=== PATIENT | female | born 1980 | race American Indian/Alaskan Native ===

== ENCOUNTER 2018-02-20 15:56 | Inpatient (IN) | payer BC ==
[2018-02-20 18:47] LABS: Basophils # (Auto) 0.1 K/mm3 (0.0-0.1); Basophils % (Auto) 0.4 % (0.0-1.8); Eosinophils # (Auto) 0.1 K/mm3 (0.0-0.4); Eosinophils % (Auto) 0.7 % (0.0-4.3); Hematocrit 38.9 % (30.3-42.9); Hemoglobin 12.9 gm/dl (10.1-14.3); Lymphocytes # (Auto) 3.8 K/mm3 (1.2-5.4); Lymphocytes % (Auto) 22.8 % (13.4-35.0); Mean Corpuscular HGB Conc 33 % (30-34); Mean Corpuscular Hemoglobin 32 pg (28-32); Mean Corpuscular Volume 96 fl (79-97); Monocytes # (Auto) 1.1 K/mm3 (0.0-0.8); Monocytes % (Auto) 6.8 % (0.0-7.3); Platelet Count 256 K/mm3 (140-440); Red Blood Count 4.05 M/mm3 (3.65-5.03); Red Cell Distribution Width 13.1 % (13.2-15.2)
[2018-02-20 18:58] LABS: INR 0.85 (0.87-1.13)
[2018-02-20 18:59] LABS: Partial Thromboplastin Time 26.7 Sec. (24.2-36.6)
[2018-02-20 19:04] LABS: Alanine Aminotransferase 33 units/L (7-56); Albumin 3.8 g/dL (3.9-5); BUN/Creatinine Ratio 24; Blood Urea Nitrogen 12 mg/dL (7-17); Calcium 9.2 mg/dL (8.4-10.2); Hemolysis Index 7
--- NOTE | 2018-02-20 20:47 | XRay Report ---
FINAL REPORT PROCEDURE: XR CHEST ROUTINE 2V TECHNIQUE: PA and lateral chest radiographs were obtained. CPT 91876 HISTORY: PLEURAL EFFUSION, SOB COMPARISON: No prior studies are available for comparison. FINDINGS: Heart: Normal. Mediastinum/Vessels: Normal. Lungs/Pleural space: No infiltrate, effusion, or pneumothorax. Bony thorax: No acute osseous abnormality. Other: IMPRESSION: No pulmonary infiltrates are identified.
[2018-02-20] MEDS: LEVAQUIN 750MG/150ML 750 MG/150 ML BAG IV SCH (21:32)
[2018-02-20] MEDS: LOVENOX SUB-Q SCH (21:33)
[2018-02-20] MEDS: HYDROMET PO SCH (21:34)
[2018-02-20] MEDS: MORPHINE IV PRN (21:34)
[2018-02-20] MEDS: PEPCID IV SCH (21:39)
--- NOTE | 2018-02-20 21:48 | History and Physical Report ---
History of Present Illness Date of examination: 02/20/18 Date of admission: 02/20/18 17:43 Chief complaint: Cough, Shortness of breath, subjective fever History of present illness: Patient is a 37-year-old lady who has a history of breast cancer status post right mastectomy in 2016 with chemotherapy s/p right breast implant and subsequent breast augmentation. Was out of the plastic surgeon's office yesterday for further plastic breast surgery. Patient was having severe shortness of breath with cough at the time. Chest x-ray done during the preop visit yesterday because of the cough showed fluid in her lungs per the patient. Surgery was therefore cancelled and patient was advised to follow up with primary Physician. Patient therefore presented to my office today still having still having shortness of breath and nonproductive cough. Endorses subjective fever. Denies any chest pain, orthopnea, paroxysmal dyspnea, nausea or vomiting. Patient was directly admitted to the hospital where WBC shows a leukocytosis of 16.8, hypokalemia of 3.4 and hyperglycemia 169. Chest x-ray showed perihilar infiltrates per my evaluation. The costophrenic angles with clear. Past History Past Medical History: hypertension Past Surgical History: mastectomy Social history: smoking, alcohol abuse Family history: hypertension, other (anxiety disorder) Medications and Allergies Allergies Allergy/AdvReac Type Severity Reaction Status Date / Time tramadol Allergy Itching Verified 03/31/15 19:41 Home Medications Medication Instructions Recorded Confirmed Last Taken Type HYDROcodone/APAP 5-325 [Aragon 2 each PO Q4H PRN #60 tablet 04/06/15 Unknown Rx 5-325 mg TAB] Labetalol [Normodyne TAB] 100 mg PO BID #60 tablet 04/06/15 Unknown Rx Lisinopril [Zestril TAB] 40 mg PO BID #30 tablet 04/06/15 Unknown Rx tiZANidine [Zanaflex] 4 mg PO Q8H PRN #90 tablet 04/06/15 Unknown Rx Hydrochlorothiazide 12.5 mg PO DAILY 02/20/18 02/20/18 02/20/18 History Letrozole (Nf) [Femara (Nf)] 2.5 mg PO DAILY 02/20/18 02/20/18 02/20/18 History Active Meds: Active Medications Enoxaparin Sodium (Lovenox) 40 mg SUB-Q QDAY@2200 SILVESTRE Last Admin: 02/20/18 21:33 Dose: 40 mg Famotidine (Pepcid) 20 mg IV Q12H [facility] Last Admin: 02/20/18 21:39 Dose: 20 mg Hydrocodone Bit/Homatropine Methylb (Hydromet) 5 ml PO BID [facility] Last Admin: 02/20/18 21:34 Dose: 5 ml Levofloxacin/Dextrose (Levaquin 750mg/150ml) 750 mg in 150 mls @ 100 mls/hr IV Q24HR [facility]; Protocol Last Admin: 02/20/18 21:32 Dose: 100 mls/hr Morphine Sulfate (Morphine) 2 mg IV Q4H PRN PRN Reason: Pain, Moderate (4-6) Last Admin: 02/20/18 21:34 Dose: 2 mg Review of systems Constitutional: Well Nouridhed and Well developed. Head: NC/ AT Eyes: Denies any visual impairments. No discharge from the eyes Nose: Denies any rhinorrhea or epistaxis Throats: Denies any post nasal drainage. Ears: Denies any hearing deficits Cardiovascular system: Denies any chest pain, has shortness of breath, No orthopnea, paroxysmal nocturnal dyspnea, or palpitation. Respiratory system: Has cough with shortness of breath, difficulty breathing, wheezing, pleuritic chest pain, Gastrointestinal system: Denies any abdominal pain, nausea vomiting, hematemesis or melena. Neurological system: Denies any headache, slurred speech, facial droop, lateralizing weakness Genitalia system: Denies any dysuria, urinary frequency or urgency, urethral discharge Skin: No rashes, hyperpigmented spots. Hematological: Denies any cervical tenderness hemorrhages or petechia. Immunological: Denies any multiple septic spots, Lymphatic: Denies any generalized lymphadenopathy. Endocrine: Denies any polyuria, polydipsia, polyphagia. No heat or cold intolerance. Musculoskeletal system: No joint pain or swelling. Psych: No visual, tactile, auditory or hallucination Exam - Physical Exam Narrative exam: Constitutional: Well-nourished well-developed. In no distress Head: Normocephalic atraumatic Eyes: Pupils are equal round and reactive to light Nose: No enlarged turbinates, no septal deviation. Mouth: Moist mucous membranes. Neck: Supple no thyromegaly. No bruit. No JVD Heart: Regular rate and rhythm, S1-S2 abnormal. No rubs murmurs or gallop Lungs: Decreased breath sounds bilaterally. no rales. Has rhonchi Abdomen: Soft, nontender. Bowel sound are present. Extremities: No edema no cyanosis and no clubbing. Neuro: Alert oriented Oriented x3. No focal sensory or motor deficit. Skin: No rashes no hyperemic spots Psychiatry: Euthymic. Calm. - Constitutional Vitals: Temp Pulse Resp BP Pulse Ox 98.5 F 65 20 147/86 100 02/20/18 18:26 02/20/18 18:26 02/20/18 21:34 02/20/18 18:26 02/20/18 18:26 Results - Labs CBC & Chem 7: 02/20/18 18:20 02/20/18 18:20 Labs: Abnormal lab results 02/20/18 02/20/18 02/20/18 Range/Units 18:20 18:20 18:20 WBC 16.8 H (4.5-11.0) K/mm3 RDW 13.1 L (13.2-15.2) % Owen # 1.1 H (0.0-0.8) K/mm3 Seg Neutrophils # 11.6 H (1.8-7.7) K/mm3 PT 12.0 L (12.2-14.9) Sec. INR 0.85 L (0.87-1.13) Potassium 3.4 L (3.6-5.0) mmol/L Creatinine 0.5 L (0.7-1.2) mg/dL Glucose 169 H (65-100) mg/dL Phosphorus (2.5-4.5) mg/dL Alkaline Phosphatase 174 H (35-129) units/L Albumin 3.8 L (3.9-5) g/dL 02/20/18 Range/Units 18:20 WBC (4.5-11.0) K/mm3 RDW (13.2-15.2) % Owen # (0.0-0.8) K/mm3 Seg Neutrophils # (1.8-7.7) K/mm3 PT (12.2-14.9) Sec. INR (0.87-1.13) Potassium (3.6-5.0) mmol/L Creatinine (0.7-1.2) mg/dL Glucose (65-100) mg/dL Phosphorus 2.40 L (2.5-4.5) mg/dL Alkaline Phosphatase (35-129) units/L Albumin (3.9-5) g/dL Assessment and Plan Assessment and plan -Bacterial pneumonia Admit to [facility] Obtain Blood culture, sputum culture Pulse ox. Commence IV Levaquin - Leukocytosis Likely secondary to pneumonia Trend WBC IV antibiotic as above - Acute Bronchitis Commence DuoNeb IV Solu-Medrol -Hypoglycemia Obtain A1c. If greater than 6.5, initiate SSI and Consent provided diet - Hypokalemia Supplement potassium. Recheck levels as well as magnesium - Tobacco use disorder Tobacco cessation counseling done - DVT prophylaxis with Lovenox and GI with Pepcid - Spent 38 mins during this admission process in direct pt care, review of laboratory and radiological data.
[2018-02-21] MEDS: PROVENTIL IH SCH ×4 (01:04→23:47)
[2018-02-21] MEDS: MORPHINE IV PRN ×3 (03:00→21:35)
[2018-02-21] MEDS: PEPCID IV SCH (05:09)
[2018-02-21 05:50] LABS: Basophils # (Auto) 0.1 K/mm3 (0.0-0.1); Basophils % (Auto) 0.5 % (0.0-1.8); Eosinophils # (Auto) 0.1 K/mm3 (0.0-0.4); Eosinophils % (Auto) 1.1 % (0.0-4.3); Hematocrit 35.5 % (30.3-42.9); Hemoglobin 11.9 gm/dl (10.1-14.3); Lymphocytes % (Auto) 33.7 % (13.4-35.0); Mean Corpuscular HGB Conc 34 % (30-34); Mean Corpuscular Hemoglobin 33 pg (28-32); Mean Corpuscular Volume 98 fl (79-97); Monocytes # (Auto) 0.9 K/mm3 (0.0-0.8); Monocytes % (Auto) 7.4 % (0.0-7.3); Platelet Count 190 K/mm3 (140-440); Red Blood Count 3.64 M/mm3 (3.65-5.03); Red Cell Distribution Width 13.3 % (13.2-15.2)
[2018-02-21 06:18] LABS: Alanine Aminotransferase 37 units/L (7-56); Albumin 3.4 g/dL (3.9-5); BUN/Creatinine Ratio 20; Blood Urea Nitrogen 12 mg/dL (7-17); Calcium 8.6 mg/dL (8.4-10.2); Hemolysis Index 18
[2018-02-21] MEDS: HYDROMET PO SCH ×2 (08:40→21:36)
[2018-02-21] MEDS: LEVAQUIN 750MG/150ML 750 MG/150 ML BAG IV SCH (08:40)
--- NOTE | 2018-02-21 10:27 | Progress Note ---
Assessment and Plan Pneumonia: -Slight perihilar infiltrate. -On IV Levaquin and bronchodilators. -Follow-up on sputum and blood culture. Leukocytosis-likely secondary to pneumonia: -Improving, continue IV antibiotics as above. Acute bronchitis: -On duo nebs, IV Solu Medrol and Hydromet. Hyperglycemia-likely secondary to steroids: -Will obtain A1c, if greater than 6.5 will initiate sliding scale insulin. Hypokalemia-Corrected Tobacco use disorder: -Counseled patient on smoking cessation. HTN: -Optimize control with Bp meds. History of breast cancer: Continue with home meds, Letrozole 2.5 mg qd DVT prophylaxis with Lovenox and GI prophylaxis with famotidine Subjective Date of service: 02/21/18 Principal diagnosis: SOB, pleural effusion Objective - Constitutional Vitals: Vital Signs - 12hr 02/21/18 02/21/18 03:00 07:46 Temperature 98.4 F Pulse Rate 48 L Respiratory 20 18 Rate Blood Pressure 136/75 O2 Sat by Pulse 96 Oximetry General appearance: Present: no acute distress, well-nourished - EENT Eyes: PERRL, EOM intact ENT: hearing intact, clear oral mucosa Ears: bilateral: normal - Neck Neck: supple, normal ROM - Respiratory Respiratory effort: normal Respiratory: bilateral: CTA - Breasts Breasts: deferred - Cardiovascular Rhythm: regular Heart Sounds: Present: S1 & S2. Absent: gallop, rub Extremities: pulses intact, No edema, normal color, Full ROM - Gastrointestinal General gastrointestinal: Present: soft, non-tender, non-distended, normal bowel sounds - Genitourinary Female genitourinary: deferred - Integumentary Integumentary: clear, warm, dry - Musculoskeletal Musculoskeletal: strength equal bilaterally - Neurologic Neurologic: moves all extremities - Psychiatric Psychiatric: appropriate mood/affect - Labs CBC & Chem 7: 02/21/18 04:19 02/21/18 04:19 Labs: Abnormal lab results 02/20/18 02/20/18 02/20/18 Range/Units 18:20 18:20 18:20 WBC 16.8 H (4.5-11.0) K/mm3 RBC (3.65-5.03) M/mm3 MCV (79-97) fl MCH (28-32) pg RDW 13.1 L (13.2-15.2) % Barber % (Auto) (0.0-7.3) % Barber # 1.1 H (0.0-0.8) K/mm3 Seg Neutrophils # 11.6 H (1.8-7.7) K/mm3 PT 12.0 L (12.2-14.9) Sec. INR 0.85 L (0.87-1.13) Potassium 3.4 L (3.6-5.0) mmol/L Creatinine 0.5 L (0.7-1.2) mg/dL Glucose 169 H (65-100) mg/dL Phosphorus (2.5-4.5) mg/dL Alkaline Phosphatase 174 H (35-129) units/L Total Protein (6.3-8.2) g/dL Albumin 3.8 L (3.9-5) g/dL 02/20/18 02/21/18 02/21/18 Range/Units 18:20 04:19 04:19 WBC 12.0 H (4.5-11.0) K/mm3 RBC 3.64 L (3.65-5.03) M/mm3 MCV 98 H (79-97) fl MCH 33 H (28-32) pg RDW (13.2-15.2) % Barber % (Auto) 7.4 H (0.0-7.3) % Barber # 0.9 H (0.0-0.8) K/mm3 Seg Neutrophils # (1.8-7.7) K/mm3 PT (12.2-14.9) Sec. INR (0.87-1.13) Potassium (3.6-5.0) mmol/L Creatinine 0.6 L (0.7-1.2) mg/dL Glucose 171 H (65-100) mg/dL Phosphorus 2.40 L (2.5-4.5) mg/dL Alkaline Phosphatase 147 H (35-129) units/L Total Protein 6.2 L (6.3-8.2) g/dL Albumin 3.4 L (3.9-5) g/dL
[2018-02-21] MEDS ORDERED: CHLORASEPTIC MM PRN (12:10)
[2018-02-21] MEDS: HCTZ PO SCH (12:51)
[2018-02-21] MEDS ORDERED: LETROZOLE 2.5 MG PO SCH (13:00)
[2018-02-21] MEDS ORDERED: NON-FORMULARY (Hydrochlorothiazide 12.5 MG) PO SCH (13:00)
[2018-02-21] MEDS: ZESTRIL PO SCH ×2 (15:07→21:30)
[2018-02-21] MEDS: PEPCID PO SCH (21:37)
[2018-02-21] MEDS: LOVENOX SUB-Q SCH (21:39)
[2018-02-22] MEDS: PROVENTIL IH SCH (07:47)
[2018-02-22 08:09] LABS: Basophils % (Auto) 0.2 % (0.0-1.8); Hematocrit 36.1 % (30.3-42.9); Hemoglobin 11.9 gm/dl (10.1-14.3); Lymphocytes # (Auto) 1.6 K/mm3 (1.2-5.4); Lymphocytes % (Auto) 8.9 % (13.4-35.0); Mean Corpuscular HGB Conc 33 % (30-34); Mean Corpuscular Hemoglobin 32 pg (28-32); Mean Corpuscular Volume 97 fl (79-97); Monocytes # (Auto) 0.9 K/mm3 (0.0-0.8); Monocytes % (Auto) 4.8 % (0.0-7.3); Platelet Count 234 K/mm3 (140-440); Red Blood Count 3.73 M/mm3 (3.65-5.03); Red Cell Distribution Width 13.3 % (13.2-15.2)
[2018-02-22 08:20] LABS: Alanine Aminotransferase 88 units/L (7-56); Albumin 4.1 g/dL (3.9-5); BUN/Creatinine Ratio 28; Blood Urea Nitrogen 11 mg/dL (7-17); Calcium 9.6 mg/dL (8.4-10.2); Hemolysis Index 1
[2018-02-22 08:29] VITALS: BP 148/63
[2018-02-22] MEDS: HYDROMET PO SCH ×2 (09:08→09:15)
[2018-02-22] MEDS: ZESTRIL PO SCH (09:10)
[2018-02-22] MEDS: MORPHINE IV PRN (09:12)
[2018-02-22] MEDS ORDERED: LEVAQUIN PO SCH (10:00)
[2018-02-22] MEDS ORDERED: HCTZ PO SCH (10:00)
[2018-02-22] MEDS: HCTZ PO SCH (10:05)
[2018-02-22] MEDS: PEPCID PO SCH (10:05)
[2018-02-22] MEDS ORDERED: PROVENTIL IH SCH (14:00)
--- NOTE | 2018-02-22 15:35 | Discharge Summary ---
Providers - Providers Date of Admission: 02/20/18 17:43 Date of discharge: 02/22/18 Attending physician: TERE MCHUGH none Primary care physician: TERE MCHUGH Hospitalization Reason for admission: cough, shortness of breath Pertinent studies: CXR ltha showed perihilar infiltrate Procedures: none Hospital course: Patient is a 37-year-old lady who has a history of breast cancer status post right mastectomy in 2016 with chemotherapy s/p right breast implant and subsequent breast augmentation, was at the plastic surgeon's office 02/19/18 for creation of a nipple on the right breast surgery. Patient noticed to be having severe shortness of breath with cough at the time. Chest x-ray done during this preop visit on 02/19/18 because of the cough showed fluid in her lungs per the patient. Surgery was therefore cancelled and patient was advised to follow up with primary Physician. Patient therefore presented to my office today still having shortness of breath and severe nonproductive cough. Endorses subjective fever. Denies any chest pain, orthopnea, paroxysmal dyspnea, nausea or vomiting. Patient was directly admitted to the hospital where WBC shows a leukocytosis of 16.8, hypokalemia of 3.4 and hyperglycemia 169. Chest x-ray showed no evidence of pneumonia per radiologist. The costophrenic angles was clear. On admission blood and sputum cultures were ordered. Pt was commenced on iv levaquin, bronchodilators, iv solumedrol and antitussive. Leukocytosis improved however it increase the next day from iv solumderol. Pt symptoms improved appreciably and she is therefore being discharged to follow up with PCP in 3-4 days. Disposition: - TO HOME OR SELFCARE Time spent for discharge: 35 mins - Discharge Diagnoses (1) Acute bronchitis Status: Acute (2) Shortness of breath Status: Acute Exam - Physical Exam Narrative exam: Constitutional: Well-nourished well-developed. In no distress Head: Normocephalic atraumatic Eyes: Pupils are equal round and reactive to light Nose: No enlarged turbinates, no septal deviation. Mouth: Moist mucous membranes. Neck: Supple no thyromegaly. No bruit. No JVD Heart: Regular rate and rhythm, S1-S2 abnormal. No rubs murmurs or gallop Lungs: Decreased breath sounds bilaterally. no rales. Has rhonchi Abdomen: Soft, nontender. Bowel sound are present. Extremities: No edema no cyanosis and no clubbing. Neuro: Alert oriented Oriented x3. No focal sensory or motor deficit. Skin: No rashes no hyperemic spots Psychiatry: Euthymic. Calm. - Constitutional Vitals: Temp Pulse Resp BP Pulse Ox 98.6 F 85 20 148/63 98 02/22/18 08:02 02/22/18 08:02 02/22/18 08:02 02/22/18 08:02 02/22/18 09:40 Plan Activity: advance as tolerated Diet: regular Follow up with: TERE MCHUGH MD [Primary Care Provider] - 7 Days Prescriptions: HYDROcodone/HOMATROP 5-1.5 [HYDROcodone-Homatropin 5-1.5 mg per 5 ML] 5 ml PO BID #200 udc Levofloxacin [Levaquin TAB] 750 mg PO DAILY #5 tablet Phenol [Sore Throat [place]] 177 ml MM TID #60 spray Prednisone 20 mg PO DAILY #7 tablet
== END 2018-02-22 17:30 | disposition home or self-care (01) | DRG 202 ==
LOC: 3A 15:56 → UNDOADMIN 15:56 → 3A 17:43
PROVIDERS: ADMIT Family Medicine; ATTEND Family Medicine
DX: J20.9 Acute bronchitis, unspecified (principal); J15.9 Unspecified bacterial pneumonia; I10 Essential (primary) hypertension; D72.829 Elevated white blood cell count, unspecified; E16.2 Hypoglycemia, unspecified; Z85.3 Personal history of malignant neoplasm of breast; Z90.11 Acquired absence of right breast and nipple; Z88.8 Allergy status to other drugs, medicaments and biological substances; Z92.21 Personal history of antineoplastic chemotherapy
CPT/HCPCS: 36415; 71046; 80053; 83735; 84100; 85025; 85610; 85730; 93005; 93010; 94640; J1650; J1956; J2270; J2920

== ENCOUNTER 2018-04-08 12:16 | Outpatient (CLI) | payer BC ==
[2018-04-08 12:47] LABS: Hematocrit 41.1 % (30.3-42.9); Hemoglobin 14.2 gm/dl (10.1-14.3); Mean Corpuscular HGB Conc 35 % (30-34); Mean Corpuscular Hemoglobin 33 pg (28-32); Mean Corpuscular Volume 96 fl (79-97); Platelet Count 213 K/mm3 (140-440); Red Blood Count 4.31 M/mm3 (3.65-5.03); Red Cell Distribution Width 13.2 % (13.2-15.2)
[2018-04-08 12:58] LABS: Alanine Aminotransferase 56 units/L (7-56); Albumin 4.6 g/dL (3.9-5); BUN/Creatinine Ratio 18; Blood Urea Nitrogen 9 mg/dL (7-17); Calcium 10.2 mg/dL (8.4-10.2); Chol/HDL Ratio 2.05 %; HDL Cholesterol 89 mg/dL (40-59); Hemolysis Index 6; LDL Cholesterol,Direct 102 mg/dL (50-130)
[2018-04-08 13:08] LABS: INR 0.9 (0.87-1.13); Partial Thromboplastin Time 25.6 Sec. (24.2-36.6)
--- NOTE | 2018-04-08 15:59 | Cat Scan Report ---
FINAL REPORT PROCEDURE: CT CHEST WO CON TECHNIQUE: Computerized axial tomography of the chest was performed without contrast material. This study is performed without intravenous contrast and the sensitivity for pathology, including neoplasms, adenopathy, abscess, pulmonary embolism and aortic dissection, is reduced. HISTORY: RIGHT LOWER INFILITARTE COMPARISON: No prior studies are available for comparison. TECHNICAL QUALITY: Satisfactory. FINDINGS: The lungs are clear. No infiltrates masses or effusions are seen. There is some mild motion artifact degrading image quality. Coronary arteries are unremarkable. No evidence of aortic aneurysm. No evidence of pericardial effusion. Nonspecific subcentimeter lymph nodes are seen in the hilar and mediastinal regions. No pathologically enlarged lymph nodes are identified. Images through upper abdomen show no acute or focal abnormalities. No acute bony abnormalities are identified. IMPRESSION: Lungs are clear. No infiltrates masses or effusions are identified. No focal abnormalities are identify.
== END 2018-04-08 12:17 | disposition home or self-care (01) ==
LOC: CT 12:16
PROVIDERS: ATTEND Internal Medicine
DX: R91.8 Other nonspecific abnormal finding of lung field (principal); Z87.891 Personal history of nicotine dependence; Z90.12 Acquired absence of left breast and nipple
CPT/HCPCS: 36415; 71250; 80053; 80061; 84436; 84443; 85027; 85610; 85730

== ENCOUNTER 2019-07-13 12:04 | Inpatient (IN) | payer BC ==
[2019-07-13] MEDS ORDERED: ONDANSETRON 4 MG/2 ML INJ IV PRN (12:10)
[2019-07-13 18:30] LABS: Basophils # (Auto) 0.1 K/mm3 (0.0-0.1); Basophils % (Auto) 0.8 % (0.0-1.8); Eosinophils # (Auto) 0.3 K/mm3 (0.0-0.4); Eosinophils % (Auto) 2.6 % (0.0-4.3); Hematocrit 40.6 % (30.3-42.9); Hemoglobin 13.8 gm/dl (10.1-14.3); Lymphocytes # (Auto) 3.5 K/mm3 (1.2-5.4); Lymphocytes % (Auto) 36.1 % (13.4-35.0); Mean Corpuscular HGB Conc 34 % (30-34); Mean Corpuscular Volume 97 fl (79-97); Monocytes # (Auto) 0.8 K/mm3 (0.0-0.8); Monocytes % (Auto) 7.8 % (0.0-7.3); Platelet Count 211 K/mm3 (140-440); Red Blood Count 4.21 M/mm3 (3.65-5.03); Red Cell Distribution Width 13.4 % (13.2-15.2)
[2019-07-13 18:41] LABS: INR 0.94 (0.87-1.13)
[2019-07-13 18:42] LABS: Partial Thromboplastin Time 26.6 Sec. (24.2-36.6)
[2019-07-13 18:45] LABS: Alanine Aminotransferase 37 units/L (7-56); BUN/Creatinine Ratio 20; Blood Urea Nitrogen 10 mg/dL (7-17); Calcium 9.3 mg/dL (8.4-10.2); Hemolysis Index 21
[2019-07-13] MEDS: D5W/0.45% NACL 1,000 ML IV SCH (18:48)
[2019-07-13] MEDS: MORPHINE 2 MG/1 ML INJ IV PRN ×2 (18:48→23:02)
--- NOTE | 2019-07-13 18:48 | History and Physical Report ---
History of Present Illness Date of examination: 07/13/19 Date of admission: 07/13/19 16:47 Chief complaint: Headache, chest pain and abdominal pain for 3 days History of present illness: Patient is a 37-year-old lady who has a history of breast cancer status post ri ght mastectomy in 2016 with chemotherapy s/p right breast implant and subsequent breast augmentation presented to the office having fallen down 12 flights of stairs on 07/10/2019 after tripping over her coat while going down the stairs to work. Patient hit her head, chest wall and, abdomen while falling down the stairs. She currently has severe headache, chest wall and abdomen pain. She started vomiting 2 days ago. She presented to my office today complaining of increasing headache, chest wall pain and abdomen pain. Severity was 8 over 10. Chest wall pain in aggravated by movement. Relieved by staying still. Denies any fever. Past History Past Medical History: hypertension Past Surgical History: Other (right mastectomy) Social history: smoking, other (occasional alcohol ingestion) Medications and Allergies Allergies Allergy/AdvReac Type Severity Reaction Status Date / Time meloxicam [From Mobic] Allergy Rash Verified 07/13/19 17:20 tramadol Allergy Itching Verified 03/31/15 19:41 Home Medications Medication Instructions Recorded Confirmed Last Taken Type Letrozole (Nf) [Femara (Nf)] 2.5 mg PO DAILY 02/20/18 07/13/19 07/13/19 09:00 History Active Meds: Active Medications Dextrose/Sodium Chloride (D5/0.45ns) 1,000 mls @ 50 mls/hr IV DIRECT SILVESTRE Morphine Sulfate (Morphine) 2 mg IV Q4H PRN PRN Reason: Pain, Moderate (4-6) Ondansetron HCl (Zofran) 4 mg IV Q6H PRN PRN Reason: Nausea And Vomiting Sodium Chloride (Sodium Chloride Flush Syringe 10 Ml) 10 ml IV BID SILVESTRE Sodium Chloride (Sodium Chloride Flush Syringe 10 Ml) 10 ml IV PRN PRN PRN Reason: LINE FLUSH Review of systems Constitutional: Well Nourished and Well developed. Head: Head, generalized. Eyes: Denies any visual impairments. No discharge from the eyes Nose: Denies any rhinorrhea or epistaxis Throats: Denies any post nasal drainage. Ears: Denies any hearing deficits Cardiovascular system: Denies any chest pain, shortness of breath, orthopnea, paroxysmal nocturnal dyspnea, or palpitation. Respiratory system: Denies any cough, difficulty breathing, wheezing, pleuritic chest pain, Gastrointestinal system: Has abdominal pain with nausea and vomiting. No hematemesis or melena. Neurological system: Denies any headache, slurred speech, facial droop, lateralizing weakness Genitalia system: Denies any dysuria, urinary frequency or urgency, urethral discharge Skin: No rashes, hyperpigmented spots. Hematological: Denies any cervical tenderness hemorrhages or petechia. Immunological: Denies any multiple septic spots, Lymphatic: Denies any generalized lymphadenopathy. Endocrine: Denies any polyuria, polydipsia, polyphagia. No heat or cold intolerance. Musculoskeletal system: Has chest wall pain. No joint pain or swelling. Psych: No visual, tactile, auditory or hallucination Exam - Physical Exam Narrative exam: Constitutional: Well-nourished well-developed. In no distress Head: Normocephalic atraumatic Eyes: Pupils are equal round and reactive to light Nose: No enlarged turbinates, no septal deviation. Mouth: Moist mucous membranes. Neck: Supple no thyromegaly. No bruit. No JVD Heart: Regular rate and rhythm, S1-S2 normal. No rubs murmurs or gallop Lungs: Clear to auscultation bilaterally. no rales or rhonchi Abdomen: Soft, nontender. Bowel sound are present. Extremities: No edema, no cyanosis, no clubbing. Neuro: Alert oriented Oriented x3. No focal sensory or motor deficit. Skin: No rashes or hyperpigmented spots Musculoskeletal system: Has chest wall tenderness. No joint pain or swelling Hematological: No petechia or subcutanous hemorrhages. Immunological: No multiple septic spots on the skin Lymphatic: No generalized lymphadenopathy Psychiatry: Euthymic. Calm. Assessment and Plan Patient is a 37-year-old lady who has a history of breast cancer status post right mastectomy in 2016 with chemotherapy s/p right breast implant and subsequent breast augmentation presented to the office having fallen down 12 flights of stairs on 07/10/2019 after tripping over her coat while going down the stairs to work. Patient hit her head, chest wall and, abdomen while falling down the stairs. She currently has severe headache, chest wall and abdomen pain. She started vomiting 2 days ago. She presented to my office today complaining of increasing headache, chest wall pain and abdomen pain. Severity was 8 over 10. Chest wall pain in aggravated by movement. Relieved by staying still. Denies any fever. Direct admission was requested. - Cerebral concussion due to a fall down 12 flights of stairs Obtain CT scan of the brain Narcotic analgesic - Severe headache From cerebral concussion Commence [place] 7.5/325 one every 6hr - Chest wall pain secondary to fall CHEST x-ray EKG - Abdomen pain with nausea vomiting secondary to a fall CT scan of abdomen and pelvis to rule out any ruptured viscus DVT prophylaxis with Lovenox after a CT scan of the brain to rule out any intracranial hemorrhage
--- NOTE | 2019-07-13 18:57 | XRay Report ---
CHEST 2 VIEWS INDICATION: NECK AND CHEST SORENESS ANDPAIN. COMPARISON: FINDINGS: Support devices: None. Heart: Within normal limits. Lungs: No acute air space or interstitial disease. Pleura: No significant pleural effusion. No pneumothorax. Additional findings: None. IMPRESSION: 1. No acute findings. Signer Name: Jimmie Freedman MD Signed: 07/13/2019 6:52 PM Workstation Name: [id number]
--- NOTE | 2019-07-13 18:58 | XRay Report ---
CLINICAL DATA: neck pain TECHNICAL DATA: AP and lateral views. FINDINGS: Soft tissues are normal. There is no evidence of compromise of the airway. No evidence of gas bubbles in the retropharyngeal region. The epiglottis and subglottic regions are normal. IMPRESSION: Normal examination as noted. Signer Name: Jimmie Freedman MD Signed: 07/13/2019 6:53 PM Workstation Name: [id number]
--- NOTE | 2019-07-13 22:55 | Cat Scan Report ---
CT head/brain wo con INDICATION / CLINICAL INFORMATION: SEVERE HEADACHE, R/O CEREBRAL CONCUSSION. TECHNIQUE: Axial CT imaging of the brain was obtained without contrast. Coronal and sagittal reformatted imaging obtained and reviewed. All CT scans at this location are performed using CT dose reduction for [place] A by means of automated exposure control. COMPARISON: 04/03/2015 FINDINGS: No intracranial hemorrhage, mass, or midline shift identified. No extra-axial fluid collection or sug gestion of acute territorial infarct. Ventricular system and basilar cisterns are unremarkable. No calvarial fracture noted. Visualized paranasal sinuses and mastoid air cells are well aerated and clear. IMPRESSION: 1. Negative noncontrasted head CT scan. Signer Name: Calli Chu MD Signed: 07/13/2019 10:50 PM Workstation Name: [id number]
--- NOTE | 2019-07-14 02:27 | Cat Scan Report ---
CT abdomen pelvis w con INDICATION / CLINICAL INFORMATION: MAIN: ABD PAIN FROM BLUNT TRAUMA, N V- 100mo Omni 300. TECHNIQUE: Axial CT imaging of abdomen and pelvis was obtained with IV contrast. Coronal and sagittal reformatte d imaging obtained and reviewed. All CT scans at this location are performed using CT dose reduction for ALARA by means of automated exposure control. COMPARISON: None available. FINDINGS: CT abdomen with contrast demonstrates grossly normal appearance of the liver, spleen, pancreas, kidne ys, and adrenal glands. Gallbladder is grossly unremarkable. No biliary dilatation. CT pelvis with contrast demonstrates trace amount of free fluid in the posterior cul-de-sac. No pelvi c mass, free fluid, or focal inflammatory change noted. A normal appendix is visualized. GI tract is grossly unremarkable. Visualized lung bases are clear. Incidental note is made of scar tissue in the left breast most likel y related to prior lumpectomy. No significant osseous abnormality. IMPRESSION: 1. No significant abnormality within the abdomen or pelvis. No visible traumatic injury. 2. Trace amount of free fluid in the posterior cul-de-sac which may be physiologic. Signer Name: Calli Chu MD Signed: 07/14/2019 2:22 AM Workstation Name: [id number]
[2019-07-14] MEDS: MORPHINE 2 MG/1 ML INJ IV PRN ×4 (04:02→19:55)
[2019-07-14] MEDS ORDERED: OXYCODONE HCL 5 MG PO PRN (09:34)
--- NOTE | 2019-07-14 09:36 | Progress Note ---
Assessment and Plan Patient is a 37-year-old lady who has a history of breast cancer status post right mastectomy in 2016 with chemotherapy s/p right breast implant and subsequent breast augmentation presented to the office having fallen down 12 flights of stairs on 07/10/2019 after tripping over her coat while going down the stairs to work. Patient hit her head, chest wall and, abdomen while falling down the stairs. She currently has severe headache, chest wall and abdomen pain. She started vomiting 2 days ago. She presented to my office today comp laining of increasing headache, chest wall pain and abdomen pain. Severity was 8 over 10. Chest wall pain in aggravated by movement. Relieved by staying still. Denies any fever. Direct admission was requested. - Cerebral concussion due to a fall, down [address] scan of the brain showed no intracranial hemorrhage Narcotic analgesic - Severe headache From cerebral concussion Commence Narco 7.5/325 one every 6hr - Chest wall pain secondary to fall CHEST x-ray was normal EKG - pending - Abdomen pain with nausea vomiting secondary to a fall CT scan of abdomen and pelvis was unremarkable. DVT prophylaxis with Lovenox Subjective Date of service: 07/14/19 Principal diagnosis: cerebral concussion, chest pain, abdominal pain Interval history: Still having severe headache, 8/10 with nausea no more vomiting. abdominal pain improving. Objective - Exam Narrative Exam: Constitutional: Well-nourished well-developed. In no distress Head: Normocephalic atraumatic Eyes: Pupils are equal round and reactive to light Nose: No enlarged turbinates, no septal deviation. Mouth: Moist mucous membranes. Neck: Supple no thyromegaly. No bruit. No JVD Heart: Regular rate and rhythm, S1-S2 normal. No rubs murmurs or gallop Lungs: Clear to auscultation bilaterally. no rales or rhonchi Abdomen: Soft, nontender. Bowel sound are present. Extremities: No edema, no cyanosis, no clubbing. Neuro: Alert oriented Oriented x3. No focal sensory or motor deficit. Skin: No rashes or hyperpigmented spots Musculoskeletal system: Has chest wall tenderness. No joint pain or swelling Hematological: No petechia or subcutanous hemorrhages. Immunological: No multiple septic spots on the skin Lymphatic: No generalized lymphadenopathy Psychiatry: Euthymic. Calm. - Constitutional Vitals: Vital Signs - 12hr 07/13/19 07/14/19 23:08 05:45 Temperature 98.0 F 98.0 F Pulse Rate 60 65 Respiratory 20 16 Rate Blood Pressure 152/77 95/53 O2 Sat by Pulse 100 98 Oximetry - Labs CBC & Chem 7: 07/13/19 18:04 07/13/19 18:04 Labs: Abnormal lab results 07/13/19 07/13/19 Range/Units 18:04 18:04 MCH 33 H (28-32) pg Lymph % (Auto) 36.1 H (13.4-35.0) % Ness % (Auto) 7.8 H (0.0-7.3) % Creatinine 0.5 L (0.7-1.2) mg/dL Alkaline Phosphatase 158 H (35-129) units/L
[2019-07-14] MEDS ORDERED: oxyCODONE 5 MG TAB PO PRN (09:41)
[2019-07-14] MEDS ORDERED: LETROZOLE 2.5 MG PO SCH (10:00)
[2019-07-14] MEDS: LETROZOLE 2.5 MG PO SCH (11:11)
[2019-07-14] MEDS: D5W/0.45% NACL 1,000 ML IV SCH (15:51)
[2019-07-14] MEDS ORDERED: ZOLPIDEM 5 MG TAB PO SCH (22:00)
[2019-07-14] MEDS ORDERED: NON-FORMULARY EACH (Zolpidem 10 MG) PO SCH (22:00)
[2019-07-15] MEDS: MORPHINE 2 MG/1 ML INJ IV PRN (02:46)
[2019-07-15 05:52] VITALS: BP 128/71
--- NOTE | 2019-07-15 08:32 | Discharge Summary ---
Providers - Providers Date of Admission: 07/13/19 16:47 Date of discharge: 07/15/19 Attending physician: TERE MCHUGH none Primary care physician: TERE MCHUGH Hospitalization Reason for admission: cerebral concussion with nausea sdn vomiting Pertinent studies: CT head that was unremarkable Xray of the neck [place] ws unremarkable CXR that was normal EKG sinus rhythm Procedures: none Hospital course: Patient is a 37-year-old lady who has a history of breast cancer status post right mastectomy in 2016 with chemotherapy s/p right breast implant and subsequent breast augmentation presented to the office having fallen down 12 flights of stairs on 07/10/2019 after tripping over her coat while going down the stairs to work. Patient hit her head, chest wall and, abdomen while falling down the stairs. She currently has severe headache, chest wall and abdomen pain. She started vomiting 2 days ago. She presented to my office today complaining of increasing headache, chest wall pain and abdomen pain. Severity was 8 over 10. Chest wall pain in aggravated by movement. Relieved by staying still. Denies any fever. Direct admission was requested. CT head, abdoman and pelvis, xray of the neck and chest were normal. pain improved to 6/10. Pt is discharged today with pain meds to f/u with me in 3 dqays and outpt PT of the neck as she still had nack pain Disposition: DC- TO HOME OR SELFCARE Time spent for discharge: 35 min - Discharge Diagnoses (1) Cerebral contusion without loss of consciousness Status: Acute (2) Contusion, chest wall Status: Acute (3) Contusion of abdominal wall Status: Acute Core Measure Documentation - Palliative Care Palliative Care/ Comfort Measures: Not Applicable - Core Measures Any of the following diagnoses?: none Exam - Physical Exam Narrative exam: Constitutional: Well-nourished well-developed. In no distress Head: Normocephalic atraumatic Eyes: Pupils are equal round and reactive to light Nose: No enlarged turbinates, no septal deviation. Mouth: Moist mucous membranes. Neck: Supple no thyromegaly. No bruit. No JVD. tender in rod neck Heart: Regular rate and rhythm, S1-S2 normal. No rubs murmurs or gallop Lungs: Clear to auscultation bilaterally. no rales or rhonchi Abdomen: Soft, tender in the upper abdoman. Bowel sound are present. Extremities: No edema, no cyanosis, no clubbing. Neuro: Alert oriented Oriented x3. No focal sensory or motor deficit. Skin: No rashes or hyperpigmented spots Musculoskeletal system: Has chest wall tenderness. No joint pain or swelling Hematological: No petechia or subcutanous hemorrhages. Immunological: No multiple septic spots on the skin Lymphatic: No generalized lymphadenopathy Psychiatry: Euthymic. Calm. - Constitutional Vitals: Temp Pulse Resp BP Pulse Ox 97.4 F L 55 L 18 128/71 92 07/15/19 05:29 07/15/19 05:29 07/15/19 05:29 07/15/19 05:29 07/15/19 05:29 Plan Activity: advance as tolerated Weight Bearing Status: Non-Weight Bearing Diet: regular Follow up with: TERE MCHUGH MD [Primary Care Provider] - 3 Days Prescriptions: Hydrochlorothiazide 12.5 mg PO DAILY #30 Oxycodone HCl [oxyCODONE] 5 mg PO Q12H PRN #10 PRN Reason: Pain
[2019-07-15] MEDS: LETROZOLE 2.5 MG PO SCH (09:51)
== END 2019-07-15 11:50 | disposition home or self-care (01) | DRG 87 ==
LOC: UNDOADMIN 12:04 → 3A 12:04
PROVIDERS: ADMIT Family Medicine; ATTEND Family Medicine
DX: S06.330A Contusion and laceration of cerebrum, unspecified, without loss of consciousness, initial encounter (principal); S20.219A Contusion of unspecified front wall of thorax, initial encounter; S30.1XXA Contusion of abdominal wall, initial encounter; W01.0XXA Fall on same level from slipping, tripping and stumbling without subsequent striking against object, initial encounter; C50.911 Malignant neoplasm of unspecified site of right female breast; I10 Essential (primary) hypertension; F17.200 Nicotine dependence, unspecified, uncomplicated; R10.9 Unspecified abdominal pain; Y93.89 Activity, other specified; Y92.89 Other specified places as the place of occurrence of the external cause; Y99.8 Other external cause status; Z90.11 Acquired absence of right breast and nipple; Z79.899 Other long term (current) drug therapy
CPT/HCPCS: 36415; 70360; 70450; 71046; 74177; 80053; 83735; 84100; 85025; 85610; 85730; 93005; 93010; 99406; G0378; J2270; Q9967